=== PATIENT | female | born 1990 | race Caucasian/White ===

== ENCOUNTER 2023-07-20 21:35 | Inpatient (IN) | payer MEDICAID ==
[~2023-07-20] VITALS: Ht 160 cm; Wt 62.1 kg
[2023-07-20] VITALS (8 sets, daily range): BP systolic 132–163; BP diastolic 82–96
[~2023-07-20 21:35] MED LIST: ACHD5005 PO; CEPH500C PO; IBP600T1 PO; OMEP20CA12 PO; ONDA8TAB2 PO; PREN1TAB19 PO
--- OUTSIDE RECORDS SUMMARY | 2023-07-20 21:39 | XMS REPORT ---
Author Author Eileen Qureshi Organization [facility] C Address [address] [place] [address] Care Team Providers Care Vasc Tech Name Role Phone AdityaDEE EDENIDI Unavailable PROBLEMS Type Condition ICD9-CM Code MTB43-QL Code Onset Dates Condition Status SNOMED Code Problem Maternal drug dependence complicating , childbirth, or the puerperium, unspecified as to episode of care 648.30 Active Problem Trichomonal vulvovaginitis 131.01 Active 97582537 Problem Supervision of normal first V22.0 Active [id number] ALLERGIES No Information ENCOUNTERS Encounter Location Date Diagnosis [place] [id number] [place] [address] Jun, [place] [address] [address] May, Supervision of normal first V22.0 [place] [id number] [place] [address] May, [place] [id number] [place] [address] May, Supervision of normal first V22.0 [place] [id number] [place] [address] May, Supervision of normal first V22.0 and Uterine size date discrepancy 649.63 [place] [address] [address] May, Supervision of normal first V22.0 and Need for razeqqauxi-uecrchh-kuaxszn is (Tdap) vaccine V06.1 [place] [id number] [place] [address] Apr, Supervision of normal first V22.0 [facility] [address] [facility] [id number] [place] [address] March, Supervision of normal first V22.0 [facility] [address] [facility] [id number] [place] [address] Feb, [facility] [address] [facility] [id number] [place] [address] Feb, [facility] [address] [facility] [id number] [place] [address] Jan, [facility] [address] [facility] [id number] [place] [address] Jan, [facility] [address] [place] [address] [id number] [address] Dec, [facility] [address] [facility] [id number] [address] Dec, [facility] [address] [place] [address] [id number] [address] Dec, [facility] [address] [address] [id number] [address] Dec, [facility] [address] [address] [id number] [address] Dec, [facility] [address] [facility] [id number] [place] [address] Dec, [facility] [address] [facility] [id number] [place] [address] Nov, [facility] [address] [facility] [id number] [place] [address] Nov, [facility] [address] [facility] [id number] [place] [address] Nov, [facility] [address] [address] [id number] [address] Nov, [facility] [address] [id number] [address] Nov, [facility] [address] [id number] [address] Nov, [facility] [address] [address] [id number] [address] Nov, [facility] [address] [address] [id number] [address] Oct, [facility] [address] [address] [id number] [address] Oct, [facility] [address] [id number] [address] Oct, IMMUNIZATIONS No Known Immunizations SOCIAL HISTORY Never Assessed REASON FOR VISIT PLAN OF CARE VITAL SIGNS MEDICATIONS Unknown Medications RESULTS No Results PROCEDURES No Known procedures INSTRUCTIONS MEDICATIONS ADMINISTERED No Known Medications
--- OUTSIDE RECORDS SUMMARY | 2023-07-20 21:39 | XMS REPORT ---
Author Author Eileen GLOVER ANY Organization [facility] Address [address] [place] [address] Care Team Providers Care Sports Health Club Membership Advisors Name Role Phone BELEN OLLIE Unavailable PROBLEMS Type Condition ICD9-CM Code [id number] Code Onset Dates Condition Status SNOMED Code Problem Maternal drug dependence complicating , childbirth, or the puerperium, unspecified as to episode of care 648.30 Active Problem Trichomonal vulvovaginitis 131.01 Active 28823657 Problem Supervision of normal first V22.0 Active 832061838 ALLERGIES No Information ENCOUNTERS Encounter Location Date Diagnosis [place] [address] [address] Jun, [place] [address] [address] May, Supervision of normal first V22.0 [place] [address] [place] [address] [id number] [place] [address] May, [place] [address] [id number] [place] [address] May, Supervision of normal first V22.0 [place] [address] [address] May, Supervision of normal first V22.0 and Uterine size date discrepancy 649.63 [place] [address] [address] May, Supervision of normal first V22.0 and Need for isekeqrlfz-pymdzyb-libttfd is (Tdap) vaccine V06.1 [place] [address] [address] Apr, Supervision of normal first V22.0 [facility] [address] [facility] [id number] [address] March, Supervision of normal first V22.0 [facility] [address] [facility] [id number], [place] [address] Feb, [facility] [address] [facility] [id number], [place] [address] Feb, [facility] [address] [facility] [id number], [place] [address] Jan, [facility] [address] [facility] [id number] [place] [address] Jan, [facility] [address] [facility] [id number], [place] [address] Dec, [facility] [address] [place] [address] [id number] [address] Dec, [facility] [address] [place] [address] [id number], [place] [address] Dec, [facility] [address]00565100[place], [place] [address] Dec, [facility] [address]00565100[place], [place] [address] Dec, [facility] [address] [facility] [id number], [place] [address] Dec, [facility] [address] [facility] [id number], [place] [address] Nov, [facility] [address] [facility] [id number], [place] [address] Nov, [facility] [address] [facility] [id number], [place] [address] Nov, [facility] [address]65[address], [place] [address] Nov, [facility] [address] [place] [address] [id number] [address] Nov, [facility] [address], [place] [address] Nov, [facility] [address] [place] [address] [id number] [address] Nov, [facility] [address] [place] [address] [id number], [place] [address] Oct, [facility] [address] [id number], [place] [address] Oct, [facility] [address] [place] [address] [id number], [place] [address] Oct, IMMUNIZATIONS No Known Immunizations SOCIAL HISTORY Never Assessed REASON FOR VISIT PLAN OF CARE VITAL SIGNS MEDICATIONS Unknown Medications RESULTS No Results PROCEDURES No Known procedures INSTRUCTIONS MEDICATIONS ADMINISTERED No Known Medications
--- OUTSIDE RECORDS SUMMARY | 2023-07-20 21:39 | XMS REPORT ---
Author Author Eileen Qureshi Organization [facility] C Address [address] [place] [address] Care Team Providers Care Game Technician Name Role Phone louiselouiseGRETCHENDEE EDENIDI Unavailable PROBLEMS Type Condition ICD9-CM Code XMA15-AI Code Onset Dates Condition Status SNOMED Code Problem Maternal drug dependence complicating , childbirth, or the puerperium, unspecified as to episode of care 648.30 Active Problem Trichomonal vulvovaginitis 131.01 Active 46249444 Problem Supervision of normal first V22.0 Active 345581081 ALLERGIES No Information ENCOUNTERS Encounter Location Date Diagnosis [place] [address] [id number] [place] [address] Jun, [place] [address] [address] May, Supervision of normal first V22.0 [place] [address] [address] [id number] [place] [address] May, [place] [address] [place] [address] [id number] [place] [address] May, Supervision of normal first V22.0 [place] [address] [address] [id number] [place] [address] May, Supervision of normal first V22.0 and Uterine size date discrepancy 649.63 [place] [address] [address] May, Supervision of normal first V22.0 and Need for clvazmozpd-lzedlhh-cmluknb is (Tdap) vaccine V06.1 [place] [address] [address] [id number] [place] [address] Apr, Supervision of normal first V22.0 [facility] [address] [facility] [id number], [place] [address] March, Supervision of normal first V22.0 [facility] [address] [facility] [id number], [place] [address] Feb, [facility] [address] [facility] [id number], [place] [address] Feb, [facility] [address] [facility] [id number], [place] [address] Jan, [facility] [address] [facility] [id number], [place] [address] Jan, [facility] [address] [place] [address] [id number], [place] [address] Dec, [facility] [address] [facility] [id number], [place] [address] Dec, [facility] [address] [place] [address] [id number], [place] [address] Dec, [facility] [address] [place] [address] [id number], [place] [address] Dec, [facility] [address] [place] [address] [id number], [place] [address] Dec, [facility] [address] [facility] [id number], [place] [address] Dec, [facility] [address] [facility] [id number], [place] [address] Nov, [facility] [address] [facility] [id number], [place] [address] Nov, [facility] [address] [facility] [id number], [place] [address] Nov, [facility] [address] [place] [address] [id number], [place] [address] Nov, [facility] [address] [place] [address] [id number], [place] [address] Nov, [facility] [address] [place] [address] [id number], [place] [address] Nov, [facility] [address] [place] [address] [id number], [place] [address] Nov, [facility] [address] [place] [address] [id number], [place] [address] Oct, [facility] [address] [place] [address] [id number], [place] [address] Oct, [facility] [address] [place] [address] [id number], [place] [address] Oct, IMMUNIZATIONS No Known Immunizations SOCIAL HISTORY Never Assessed REASON FOR VISIT PLAN OF CARE VITAL SIGNS MEDICATIONS Unknown Medications RESULTS No Results PROCEDURES No Known procedures INSTRUCTIONS MEDICATIONS ADMINISTERED No Known Medications
--- OUTSIDE RECORDS SUMMARY | 2023-07-20 21:39 | XMS REPORT ---
Author Author Eileen GLOVER ANY Organization [facility] Address [address] [place] [address] Care Team Providers Care Home Visitor Name Role Phone BELEN OLLIE Unavailable PROBLEMS Type Condition ICD9-CM Code OYU36-JF Code Onset Dates Condition Status SNOMED Code Problem Maternal drug dependence complicating , childbirth, or the puerperium, unspecified as to episode of care 648.30 Active Problem Trichomonal vulvovaginitis 131.01 Active 49823487 Problem Supervision of normal first V22.0 Active 667486061 ALLERGIES No Information ENCOUNTERS Encounter Location Date Diagnosis [place] [address] [address] Jun, [place] [address] [address] May, Supervision of normal first V22.0 [place] [address] [place] [id number] [place] [address] May, [place] [address] [place] [id number] [place] [address] May, Supervision of normal first V22.0 [place] [address] [address] May, Supervision of normal first V22.0 and Uterine size date discrepancy 649.63 [place] [address] [address] May, Supervision of normal first V22.0 and Need for wcdrjmdues-ubqlskv-okjhtwl is (Tdap) vaccine V06.1 [place] [address] [address] Apr, Supervision of normal first V22.0 [facility] [address] [facility] [id number], [place] [address] March, Supervision of normal first V22.0 [facility] [address] [facility] [id number], [place] [address] Feb, [facility] [address] [facility] [id number], [place] [address] Feb, [facility] [address] [facility] [id number], [place] [address] Jan, [facility] [address] [facility] [id number] [place] [address] Jan, [facility] [address] [facility] [id number], [place] [address] Dec, [facility] [address] [place] [id number], [place] [address] Dec, [facility] [address] [id number], [place] [address] Dec, [facility] [address]00565100[place], [place] [address] Dec, [facility] [address]00565100[place], [place] [address] Dec, [facility] [address] [facility] [id number], [place] [address] Dec, [facility] [address] [facility] [id number], [place] [address] Nov, [facility] [address] [facility] [id number], [place] [address] Nov, [facility] [address] [facility] [id number], [place] [address] Nov, [facility] [address]00565100[place], [place] [address] Nov, [facility] [address] [facility] [id number], [place] [address] Nov, [facility] [place] [address] [address] [id number], [place] [address] Nov, [facility] [address] [facility] [id number], [place] [address] Nov, [facility] [place] [address] [facility] [id number], [place] [address] Oct, [facility] [place] [address] [facility] [id number], [place] [address] Oct, [facility] [place] [address] [id number], [place] [address] Oct, IMMUNIZATIONS No Known Immunizations SOCIAL HISTORY Never Assessed REASON FOR VISIT PLAN OF CARE VITAL SIGNS Height 63 in 2014-12-30 Weight 123.39 lbs 2014-12-30 Temperature 99 degrees Fahrenheit 2014-12-30 Heart Rate 80 bpm 2014-12-30 Respiratory Rate 20 2014-12-30 Blood pressure systolic 122 mmHg Blood pressure diastolic 76 mmHg 2014-12 MEDICATIONS Unknown Medications RESULTS No Results PROCEDURES Procedure Date Ordered Result Body Site OB US >/= 14 WKS, SNGL FETUS Dec 30, 2014 URINE-NO MICRO Dec 30, 2014 INSTRUCTIONS MEDICATIONS ADMINISTERED No Known Medications
--- OUTSIDE RECORDS SUMMARY | 2023-07-20 21:39 | XMS REPORT ---
Author Author Eileen GLOVER ANY Organization [facility] Address [address] [place] [address] Care Team Providers Care Suspect Artist Name Role Phone BELEN OLLIE Unavailable PROBLEMS Type Condition ICD9-CM Code UTF15-QW Code Onset Dates Condition Status SNOMED Code Problem Maternal drug dependence complicating , childbirth, or the puerperium, unspecified as to episode of care 648.30 Active Problem Trichomonal vulvovaginitis 131.01 Active 38807468 Problem Supervision of normal first V22.0 Active 066300366 ALLERGIES No Information ENCOUNTERS Encounter Location Date Diagnosis [place] [address] [address] Jun, [place] [address] [address] May, Supervision of normal first V22.0 [place] [address] [place] [address] [id number] [place] [address] May, [place] [address] [place] [id number] [place] [address] May, Supervision of normal first V22.0 [place] [address] [address] May, Supervision of normal first V22.0 and Uterine size date discrepancy 649.63 [place] [address] [address] May, Supervision of normal first V22.0 and Need for ljxprpjsdd-nzisgmi-piejbcb is (Tdap) vaccine V06.1 [place] [address] [address] Apr, Supervision of normal first V22.0 [facility] [address] [facility] [id number], [place] [address] March, Supervision of normal first V22.0 [facility] [address] [facility] [id number], [place] [address] Feb, [facility] [address] [facility] [id number], [place] [address] Feb, [facility] [address] [facility] [id number], [place] [address] Jan, [facility] [address] [facility] [id number] [place] [address] Jan, [facility] [address] [facility] [id number], [place] [address] Dec, [facility] [address] [place] [id number], [place] [address] Dec, [facility] [address] [place] [id number], [place] [address] Dec, [facility] [address]00565100[place], [place] [address] Dec, [facility] [address]00565100[place], [place] [address] Dec, [facility] [address] [facility] [id number], [place] [address] Dec, [facility] [address] [facility] [id number], [place] [address] Nov, [facility] [address] [facility] [id number], [place] [address] Nov, [facility] [address] [facility] [id number], [place] [address] Nov, [facility] [address]00565100[place], [place] [address] Nov, [facility] [place] [address] [facility] [id number], [place] [address] Nov, [facility] [place] [address] [place] [id number], [place] [address] Nov, [facility] [place] [address] [facility] [id number], [place] [address] Nov, [facility] [place] [address] [facility] [id number], [place] [address] Oct, [facility] [place] [address] [facility] [id number], [place] [address] Oct, [facility] [place] [address] [place] [address] [id number], [place] [address] Oct, IMMUNIZATIONS No Known Immunizations SOCIAL HISTORY Never Assessed REASON FOR VISIT PLAN OF CARE VITAL SIGNS Height 63 in 2015-01-27 Weight 127.79 lbs 2015-01-27 Temperature 98.7 degrees Fahrenheit Heart Rate 76 bpm 2015-01-27 Respiratory Rate 18 2015-01-27 Blood pressure systolic 108 mmHg Blood pressure diastolic 62 mmHg 2015-01 MEDICATIONS Unknown Medications RESULTS No Results PROCEDURES Procedure Date Ordered Result Body Site URINE-NO MICRO January 27, 2015 INSTRUCTIONS MEDICATIONS ADMINISTERED No Known Medications
--- OUTSIDE RECORDS SUMMARY | 2023-07-20 21:39 | XMS REPORT ---
Author Author Eileen Qureshi Organization [facility] C Address [address] [place] [address] Care Team Providers Care Customs Director Name Role Phone louiselouiseGRETCHENDEE EDENIDI Unavailable PROBLEMS Type Condition ICD9-CM Code SZS70-HV Code Onset Dates Condition Status SNOMED Code Problem Maternal drug dependence complicating , childbirth, or the puerperium, unspecified as to episode of care 648.30 Active Problem Trichomonal vulvovaginitis 131.01 Active 65883246 Problem Supervision of normal first V22.0 Active 494681747 ALLERGIES No Information ENCOUNTERS Encounter Location Date Diagnosis [place] [id number] [place] [address] Jun, [place] [address] [address] May, Supervision of normal first V22.0 [place] [id number] [place] [address] May, [place] [id number] [place] [address] May, Supervision of normal first V22.0 [place] [id number] [place] [address] May, Supervision of normal first V22.0 and Uterine size date discrepancy 649.63 [place] [address] [address] May, Supervision of normal first V22.0 and Need for ekbgielzgv-jukcwea-afzrahj is (Tdap) vaccine V06.1 [place] [id number] [place] [address] Apr, Supervision of normal first V22.0 [facility] [address] [facility] [id number], [place] [address] March, Supervision of normal first V22.0 [facility] [address] [facility] [id number], [place] [address] Feb, [facility] [address] [facility] [id number], [place] [address] Feb, [facility] [address] [facility] [id number], [place] [address] Jan, [facility] [address] [facility] [id number], [place] [address] Jan, [facility] [address] [id number], [place] [address] Dec, [facility] [address] [facility] [id number], [place] [address] Dec, [facility] [address] [id number], [place] [address] Dec, [facility] [address] [id number], [place] [address] Dec, [facility] [address] [id number], [place] [address] Dec, [facility] [address] [facility] [id number], [place] [address] Dec, [facility] [address] [facility] [id number], [place] [address] Nov, [facility] [address] [facility] [id number], [place] [address] Nov, [facility] [place] [facility] [address] [facility] [id number], [place] [address] Nov, [facility] [address] [id number], [place] [address] Nov, [facility] [address] [facility] [id number], [place] [address] Nov, [facility] [address] [facility] [id number], [place] [address] Nov, [facility] [address] [facility] [id number], [place] [address] Nov, [facility] [address] [facility] [id number], [place] [address] Oct, [facility] [address] [facility] [id number], [place] [address] Oct, [facility] [address] [facility] [id number], [place] [address] Oct, IMMUNIZATIONS No Known Immunizations SOCIAL HISTORY Never Assessed REASON FOR VISIT PLAN OF CARE VITAL SIGNS Height 63 in 2014-12-02 Weight 120.3 lbs 2014-12-02 Temperature 97.7 degrees Fahrenheit Heart Rate 70 bpm 2014-12-02 Respiratory Rate 18 2014-12-02 Blood pressure systolic 112 mmHg Blood pressure diastolic 72 mmHg 2014-11 MEDICATIONS Unknown Medications RESULTS No Results PROCEDURES Procedure Date Ordered Result Body Site TRICHOMONAS VAGIN, DIR PROBE Dec 02, 2014 SCR PAP SMER;NEW PT OBTAIN PREP&CONVY-LAB Dec 02, 2014 CYTOPATH C/V AUTO FLUID REDO Dec 02, 2014 CHYLMD TRACH, DNA, AMP PROBE Dec 02, 2014 DRUG SCREEN, QUALITATE/MULTI Dec 02, 2014 CULTURE, BACTERIA, OTHER Dec 02, 2014 URINALYSIS, AUTO, W/O SCOPE Dec 02, 2014 INSTRUCTIONS MEDICATIONS ADMINISTERED No Known Medications
--- OUTSIDE RECORDS SUMMARY | 2023-07-20 21:39 | XMS REPORT ---
Author Author Eileen Qureshi Organization [facility] C Address [address] [place] [address] Care Team Providers Care Handling Tech Name Role Phone AdityaDEE EDENIDI Unavailable PROBLEMS Type Condition ICD9-CM Code ASB02-KN Code Onset Dates Condition Status SNOMED Code Problem Maternal drug dependence complicating , childbirth, or the puerperium, unspecified as to episode of care 648.30 Active Problem Trichomonal vulvovaginitis 131.01 Active 90098263 Problem Supervision of normal first V22.0 Active 874990859 ALLERGIES No Information ENCOUNTERS Encounter Location Date Diagnosis [place] [id number] [place] [address] Jun, [place] [address] [address] May, Supervision of normal first V22.0 [place] [id number] [place] [address] May, [place] [id number] [place] [address] May, Supervision of normal first V22.0 [place] [id number] [place] [address] May, Supervision of normal first V22.0 and Uterine size date discrepancy 649.63 [place] [address] [address] May, Supervision of normal first V22.0 and Need for gvgldcvasx-yhpiulw-uehiorz is (Tdap) vaccine V06.1 [place] [id number] [place] [address] Apr, Supervision of normal first V22.0 [facility] [address] [facility] [id number] [place] [address] March, Supervision of normal first V22.0 [facility] [address] [facility] [id number] [place] [address] Feb, [facility] [address] [facility] [id number] [place] [address] Feb, [facility] [address] [facility] [id number] [place] [address] Jan, [facility] [address] [facility] [id number] [place] [address] Jan, [facility] [address] [id number] [address] Dec, [facility] [address] [facility] [id number] [place] [address] Dec, [facility] [address] [id number] [address] Dec, [facility] [address] [id number] [address] Dec, [facility] [address] [id number] [address] Dec, [facility] [address] [facility] [id number] [place] [address] Dec, [facility] [address] [facility] [id number] [place] [address] Nov, [facility] [address] [facility] [id number] [place] [address] Nov, [facility] [place] [facility] [address] [facility] [id number] [place] [address] Nov, [facility] [address] [id number] [address] Nov, [facility] [address] [facility] [id number] [place] [address] Nov, [facility] [address] [facility] [id number] [place] [address] Nov, [facility] [address] [facility] [id number] [place] [address] Nov, [facility] [address] [facility] [id number] [place] [address] Oct, [facility] [address] [facility] [id number] [place] [address] Oct, [facility] [address] [facility] [id number] [place] [address] Oct, IMMUNIZATIONS Vaccine Route Administration Date Status FLULAVAL (3 & UP) 2013 Unknown Oct 20, 2014 Admin istered SOCIAL HISTORY Never Assessed REASON FOR VISIT PLAN OF CARE VITAL SIGNS Height 63 in 2014-10-20 Weight 119.7 lbs 2014-10-20 Temperature 97.9 degrees Fahrenheit Heart Rate 74 bpm 2014-10-20 Respiratory Rate 18 2014-10-20 Blood pressure systolic 116 mmHg Blood pressure diastolic 74 mmHg 2014-10 MEDICATIONS Unknown Medications RESULTS No Results PROCEDURES Procedure Date Ordered Result Body Site HEPATITIS B SURFACE AG, EIA Oct 20, 2014 RUBELLA ANTIBODY Oct 20, 2014 URINE CULTURE/COLONY COUNT Oct 20, 2014 HIV-1 Oct 20, 2014 BLOOD SEROLOGY, QUALITATIVE Oct 20, 2014 ASSAY THYROID STIM HORMONE Oct 20, 2014 OB US < 14 WKS, SINGLE FETUS Oct 20, 2014 BLOOD TYPING, ABO Oct 20, 2014 RBC ANTIBODY SCREEN Oct 20, 2014 COMPLETE CBC W/AUTO DIFF WBC Oct 20, 2014 URINALYSIS, AUTO, W/O SCOPE Oct 20, 2014 VENIPUNCT, ROUTINE* Oct 20, 2014 INSTRUCTIONS MEDICATIONS ADMINISTERED No Known Medications
--- OUTSIDE RECORDS SUMMARY | 2023-07-20 21:39 | XMS REPORT ---
Author Author Eileen John Doctor Organization [facility] Address Unknown Phone Unavailable Care Team Providers Care Parent Educator Name Role Phone Migration, Doctor Unavailable Unavailable PROBLEMS Type Condition ICD9-CM Code [id number] Code Onset Dates Condition Status SNOMED Code Problem Maternal drug dependence complicating , childbirth, or the puerperium, unspecified as to episode of care 648.30 Active Problem Trichomonal vulvovaginitis 131.01 Active 21925376 Problem Supervision of normal first V22.0 Active 118200435 ALLERGIES No Information ENCOUNTERS Encounter Location Date Diagnosis [place] [id number] [place] [address] Jun, [place] [id number] [place] [address] May, Supervision of normal first V22.0 [place] [id number] [place] [address] May, [place] [id number] [place] [address] May, Supervision of normal first V22.0 [place] [id number] [place] [address] May, Supervision of normal first V22.0 and Uterine size date discrepancy 649.63 [place] [id number] [place] [address] May, Supervision of normal first V22.0 and Need for qsjrsxcxpc-wmspjix-ofiwtiw is (Tdap) vaccine V06.1 [place] [id number] [place] [address] Apr, Supervision of normal first V22.0 [place] [address] [id number] [place] [address] March, Supervision of normal first V22.0 [facility] [address] [id number] [place] [address] 14 Feb, 2015 [facility] [address] [facility] [id number] [place] [address] Feb, [facility] [address] [facility] [id number] [place] [address] Jan, [facility] [address] [id number] [place] [address] Jan, [facility] [address] [id number] [place] [address] Dec, [facility] [address] [facility] [id number] [place] [address] Dec, [facility] [address] [facility] [id number] [place] [address] Dec, [facility] [address] [facility] [id number] [place] [address] Dec, [facility] [address] [facility] [id number], [place] [address] Dec, [facility] [address] [facility] [id number] [place] [address] Dec, [facility] [address] [facility] [id number], [place] [address] Nov, [facility] [place] [facility] [address] [facility] [id number] [place] [address] Nov, [facility] [address] [facility] [id number] [place] [address] Nov, [facility] [place] [facility] [address] [facility] [id number] [place] [address] Nov, [facility] [place] [facility] [address] [facility] [id number], [place] [address] Nov, [facility] [address] [id number], [place] [address] Nov, [facility] [address] [id number], [place] [address] Nov, [facility] [address] [id number], [place] [address] Oct, [facility] [address] [id number], [place] [address] Oct, [facility] [address] [facility] [id number][place] [address] Oct, IMMUNIZATIONS No Known Immunizations SOCIAL HISTORY Never Assessed REASON FOR VISIT EMR-[facility] PLAN OF CARE VITAL SIGNS MEDICATIONS Medication Instructions Dosage Frequency Start Date End Date Duration Status Zofran ODT 8 mg 1 tablet by Oral route every 8 hours PRN nausea or vomiting Jan, Active DiphenhydrAMINE HCl 25 mg take 1 capsule (25 mg) by oral route 3 times per day PRN Oct, Active RESULTS No Results PROCEDURES No Known procedures INSTRUCTIONS MEDICATIONS ADMINISTERED No Known Medications
--- OUTSIDE RECORDS SUMMARY | 2023-07-20 21:39 | XMS REPORT ---
Author Author Eileen John Doctor Organization [facility] Address Unknown Phone Unavailable Care Team Providers Care Numerical Control Programmer Name Role Phone Migration, Doctor Unavailable Unavailable PROBLEMS Type Condition ICD9-CM Code XCO51-EO Code Onset Dates Condition Status SNOMED Code Problem Maternal drug dependence complicating , childbirth, or the puerperium, unspecified as to episode of care 648.30 Active Problem Trichomonal vulvovaginitis 131.01 Active 02853210 Problem Supervision of normal first V22.0 Active 934064897 ALLERGIES No Information ENCOUNTERS Encounter Location Date Diagnosis [place] [id number] [place] [address] Jun, [place] [id number] [place] [address] May, Supervision of normal first V22.0 [place] [id number] [place] [address] May, [place] [id number] [place] [address] May, Supervision of normal first V22.0 [place] [id number] [place] [address] May, Supervision of normal first V22.0 and Uterine size date discrepancy 649.63 [place] [id number] [place] [address] May, Supervision of normal first V22.0 and Need for uwwlqxjtxq-yziecwb-pggfqer is (Tdap) vaccine V06.1 [place] [address] [place] [address] Apr, Supervision of normal first V22.0 [place] [id number] [address] March, Supervision of normal first V22.0 [facility] [address] [id number] [place] [address] 14 Feb, 2015 [facility] [address] [facility] [id number] [place] [address] Feb, [facility] [address] [facility] [id number] [place] [address] Jan, [facility] [address] [id number] [place] [address] Jan, [facility] [address] [id number] [place] [address] Dec, [facility] [address] [facility] [id number] [place] [address] Dec, [facility] [address] [facility] [id number] [place] [address] Dec, [facility] [address] [facility] [id number] [place] [address] Dec, [facility] [address] [facility] [id number], [place] [address] Dec, [facility] [address] [facility] [id number] [place] [address] Dec, [facility] [address] [facility] [id number], [place] [address] Nov, [facility] [place] [facility] [address] [facility] [id number] [place] [address] Nov, [facility] [address] [facility] [id number] [place] [address] Nov, [facility] [place] [facility] [address] [facility] [id number] [place] [address] Nov, [facility] [place] [facility] [address] [id number], [place] [address] Nov, [facility] [address]65100[place], [place] [address] Nov, [facility] [address]00565100[place], [place] [address] Nov, [facility] [address] [id number], [place] [address] Oct, [facility] [address] [id number], [place] [address] Oct, [facility] [address] [id number], [place] [address] Oct, IMMUNIZATIONS No Known Immunizations SOCIAL HISTORY Never Assessed REASON FOR VISIT EMR-[facility] [place] [place] PLAN OF CARE VITAL SIGNS MEDICATIONS Unknown Medications RESULTS No Results PROCEDURES No Known procedures INSTRUCTIONS MEDICATIONS ADMINISTERED No Known Medications
[2023-07-20] MEDS ORDERED: D5 LR 1,000 ML IV SOLN 1,000 ML IV ONE (22:13)
[2023-07-20] MEDS ORDERED: AMPICILLIN 2,000 MG/14.8 ML (IV USE) ONE (22:13)
[2023-07-20] MEDS ORDERED: WATER (STERILE) FOR INJECTION 20 ML ONE (22:13)
[2023-07-20] MEDS ORDERED: NS (IVPB) 50 ML 50 ML ONE (22:16)
--- NOTE | 2023-07-20 22:23 | History & Physical-OB ---
OB - Chief Complaint & HPI Date/Time Date of Admission: Date of Admission: Jul 20, 2023 at 21:35 Date seen by a Provider: Jul 20, 2023 Time Seen by a Provider: 22:00 Chief Complaint/History OB-Reason for Admission/Chief: Obstetrical Complication Hx : 2 Hx Para: 1 Expected Date of Delivery: Aug 01, 2023 Gestational Age in Weeks: 38 Gestational Age in Days: 2 Indication for induction: medical complication Other reason for admission: at 38w2d with complicated by limited care, homelessness, depression, substance use earlier in , reported last use around March. She is currently planning to place baby for adoption and has adoptive parents with her at the hospital. TOMMY by 19 week US with unknown LMP, and first visit was at 33 weeks. On 06/15/23 US showed EFW 1995 grams, 16% measuring 32w4d. Today at her routine office visit she was noted to have low fundal height and repeat US was done after visit which showed EFW 2356 grams, measuring 34w6d, less than 2%, YENNI within normal limits. Attempted to reach patient to instruct to come to the hospital for induction, but we were unable to reach for some time, left messages for return call. Ultimately, spoke to patient 1999 and she came in for induction due to IUGR. History of Labs O negative, antibody neg, RI. HIV/HepB/HepC/RPR NR. GC/chlamydia neg. 1 hour glucola nml. GBS positive. Allergies and Home Medications Allergies Coded Allergies: No Known Drug Allergies (Unverified , 11/04/14) Patient Home Medication List Home Medication List Reviewed: Yes Escitalopram Oxalate (Escitalopram Oxalate) 10 Mg Tablet, 10 MG PO DAILY, (Reported) Entered as Reported by: OLLIE GLOVER on 07/20/232228 Last Action: Reviewed Vit/Fe Fumarate/Fa ( Vitamins Tablet) 1 Each Tablet, 1 EACH PO DAILY, (Reported) Entered as Reported by: CARLITO BOLDEN on 05/29/151956 Last Action: Reviewed Discontinued Medications Hydrocodone Bit/Acetaminophen (Lortab 5 Mg) 1 Tab Tab, 1 TAB PO Q4H PRN for PAIN Discontinued Reason: No Longer Taking Prescribed by: EVA SCHAEFER on 06/13/15 0921 Ibuprofen (Motrin Tablet) 600 Mg Tab, 600 MG PO Q6H Discontinued Reason: No Longer Taking Prescribed by: EVA SCHAEFER on 06/13/15 0921 Omeprazole (Zantac-Ppi) 20 Mg Capsule.dr, 300 MG PO BID PRN for HEARTBURN Discontinued Reason: No Longer Taking Prescribed by: VESTA CAMARENA on 06/10/15 8742 OB - History Hx of Present Care: Yes (limited) Abnormal Ultrasound Findings: 19 week US normal, 32 week US unremarkable, 38 week US with growth restriction and EFW < 2% Obstetrical Complications: Growth Restriction Medical Complications: Psychiatric Information Induced Hypertension: No Maternal Gestational Diabetes: No Hemorrhage: No Obstetrical History Hx : 3 Hx Para: 1 Hx # Term Pregnancies: 1 Hx # Pregnancies: 0 Number of Living Children: 1 Hx Total # of Abortions (Spona: 1 Hx Multiple Gestation: No Hx Ectopic : No Hx Stillbirth: No Hx Complication: Yes (IUGR current) Hx Induced Hypertens: No Hx Maternal Gestational Diabet: No Hx Hemorrhage: No Delivery History Hx Dystocia: No Hx Forceps Assisted Delivery: No Hx Vacuum Extraction Assisted: No Hx Placenta Abnormality: No Hx Distress: No Hx Large For Gestational Age I: No Hx Small for Gestational Age I: No Hx Section: No Hx Vaginal Delivery Post C-Sec: No Hx Blood Disorders: No Adverse Rxn to Tranfusion: No Risk Variables Obstetrical Risk Variables: Not POA Anemia, Not POA Asthma, Not POA Autoimmune Disease, Not POA Bariatric Surgery, Not POA Bleeding Disorder, Not POA BMI >= 40, Not POA Cardiac Disease; POA Economic Housing Instabil; Not POA Gastrointestinal Disease, Not POA Gestational Diabetes, Not POA HIV, Not POA Hypertension, Not POA Long-Term Anticoagulant U; POA Mental Health Disorder; Not POA Multiple , Not POA Neuromuscular Disease, Not POA Obstetrical VTE, Not POA Other Preeclampsia, Not POA Placenta Previa, Not POA Placental Ab ruption, Not POA Placenta Accreta Spectrum, Not POA Preexisting Diabetes, Not POA , Not POA Previous , Not POA Pulmonary Hypertension, Not POA Renal Disease, Not POA Severe Preeclampsia; POA Substance Abuse; Not POA Thyrotoxicosis Patient Past Medical History PMHx: Depression SurgHx: Tonsillectomy Left knee surgery Social History/Family History Alcohol Use: Denies Use Recreational Drug Use: Yes (history of THC and "other", last use reported March 2023) Smoking Cessation: Current every day smoker 2nd Hand Smoke Exposure: Yes Immunizations Hepatitis A: Yes Hepatitis B: Yes Tetanus Booster (TDap): Less than 5yrs (07/13/23) Rubella: immune RPR/VDRL: Negative GBS Status: Positive HBsAG: Negative OB - Admission Exam Physical Exam HEENT: NCAT Abdomen: Non tender Extremities: Normal Cervical Dilatation: 4cm Effacement: 50% Station: -1 Membranes: Ruptured (AROM at time of exam) Amniotic Fluid: Thick Meconium Heart Rate: 130's Accelerations: Accelerations Present Decelerations: No Decelerations Short Term Variability: Present Long-Term Variability: Average (6-25) Contractions on Admission: >10 Minutes Apart Gutierrez Scoring Tool (Modified) Dilation (cm): 3-4cm (2) Effacement (%): 51-79% (2) Descent/Station: -1,0 (2) Cervix Consistency: Soft (2) Cervix Position: Anterior (2) Add 1 point for: Each previous vaginal delivery (1) Gutierrez Score: 11 OB - Assessment/Plan/Diagnosis Assessment Admission Dx Term intrauterine growth restriction Group B strep positive Limited care Depression escitralopram Tobacco use Substance use in early Housing instability Admission Status: Inpatient Order (span 2 midnights) Reason for Inpatient Admission: Labor, delivery and course Plan Other Plan AROM and pitocin for induction of labor for growth restriction dietary services director consult OLLIE GLOVER MD Jul 20, 2023 22:23
[2023-07-20 22:28] LABS: BASOPHILS % (AUTO) 0 % (0-10); EOSINOPHILS # (AUTO) 0.2 10^3/uL (0.0-0.3); EOSINOPHILS % (AUTO) 1 % (0-10); HEMATOCRIT 35 % (35-52); HEMOGLOBIN 11.9 g/dL (11.5-16.0); LYMPHOCYTES # (AUTO) 2.5 10^3/uL (1.0-4.0); LYMPHOCYTES % (AUTO) 22 % (12-44); MEAN CORPUSCULAR HEMOGLOBIN 31 pg (25-34); MEAN CORPUSCULAR HGB CONC 34 g/dL (32-36); MEAN CORPUSCULAR VOLUME 89 fL (80-99); MEAN PLATELET VOLUME 10.8 fL (9.0-12.2); MONOCYTES # (AUTO) 0.9 10^3/uL (0.0-1.0); MONOCYTES % (AUTO) 8 % (0-12); NEUTROPHILS # (AUTO) 8.1 10^3/uL (1.8-7.8); NEUTROPHILS % (AUTO) 69 % (42-75); PLATELET COUNT 147 10^3/uL (130-400); WHITE BLOOD COUNT 11.8 10^3/uL (4.3-11.0)
[2023-07-20] MEDS ORDERED: ESCI-2 PO (22:29)
[2023-07-20] MEDS ORDERED: LACTATED RINGERS 1,000 ML 500 ML IV PRN (22:30)
[2023-07-20] MEDS ORDERED: MINERAL OIL 30 ML UDC TOP PRN (22:30)
[2023-07-20] MEDS ORDERED: OXYTOCIN DRIP PRE-MIX 500 ML IV SCH (22:30)
[2023-07-20] MEDS ORDERED: D5 LR 1,000 ML IV SOLN 1,000 ML IV SCH (22:30)
[2023-07-20] MEDS ORDERED: AMPICILLIN (IV) 2,000 MG in NS (IVPB) 50 ML 50 ML IV SCH (22:30)
[2023-07-20] MEDS ORDERED: fentaNYL 2 mcg/ml BUPIVA 0.125 100 ML ONE (22:33)
[2023-07-20 23:29] LABS: AMPHETAMINE SCREEN, URINE POSITIVE (NEGATIVE); CANNABINOID SCREEN, URINE POSITIVE (NEGATIVE)
[2023-07-20 23:30] LABS: BARBITURATE SCREEN URINE NEGATIVE (NEGATIVE); BENZODIAZEPINES SCREEN URINE NEGATIVE (NEGATIVE); COCAINE SCREEN URINE NEGATIVE (NEGATIVE); METHADONE STAT NEGATIVE (NEGATIVE); OPIATE SCREEN URINE NEGATIVE (NEGATIVE); OXYCODONE STAT NEGATIVE (NEGATIVE); PROPOXYPHENE STAT NEGATIVE (NEGATIVE); TRICYCLIC ANTIDEPRESSANTS SCRE NEGATIVE (NEGATIVE)
[2023-07-20] MEDS ORDERED: fentaNYL INJECTION 100 MCG/2 ML VIAL ONE (23:40)
[2023-07-20] MEDS ORDERED: BUPIVACAINE 0.25% 10 ML VIAL ONE (23:40)
[2023-07-20] MEDS ORDERED: diphenhydrAMINE INJ 50 MG/ML VIAL IV PRN (23:45)
[2023-07-20] MEDS ORDERED: LACTATED RINGERS 1,000 ML 1,000 ML IV SCH (23:45)
[2023-07-20] MEDS ORDERED: NALOXONE 0.4 MG/ML 1 ML VIAL IV PRN (23:45)
[2023-07-20] MEDS ORDERED: ONDANSETRON INJECTION 4 MG/2 ML (SDV) IV PRN (23:45)
[2023-07-20] MEDS ORDERED: fentaNYL 2 mcg/ml BUPIVA 0.125 100 ML EPI SCH (23:45)
[2023-07-21] VITALS (29 sets, daily range): BP systolic 120–154; BP diastolic 70–95
[2023-07-21] MEDS ORDERED: AMPICILLIN (IV) 1,000 MG in NS (IVPB) 50 ML 50 ML IV SCH (02:30)
[2023-07-21] MEDS ORDERED: CATHETER FLUSH 10 ML SYR IV SCH (06:00)
--- NOTE | 2023-07-21 06:16 | OB Labor & Delivery Record ---
Vag Delivery Note Vag Delivery Note Date of Delivery: 07/21/23 Preoperative Diagnosis: Eileen Méndez is a (33 /Para 3 / 1, Gestational Age (wks)38with 3 days Postoperative Diagnosis: Same Surgeon: OLLIE GLOVER Anesthesia: Epidural Delivery Type: Findings: Viable female infant, apgars 7/8, weight 5lb9 Lacerations: perineal abrasion, left periurethral laceration Intact placenta with 3 vessel cord. No nuchal cord, body cord or shoulder dystocia Estimated Blood Loss: 150 ml Complications: None Condition: Stable Description of Procedure: The patient is a 33 year old female who presented for induction due to suspected growth restriction. She was admitted and informed consent was obtained. Her labor course was unremarkable. She progressed to complete dilatation and began to push. She was then set up for delivery. The 's head was delivered atraumatically in the MACK position. The shoulders and remainder of the 's body were then delivered without difficulty. Upon delivery, the was vigorous and the mouth and nares were bulb suctioned. The cord was doubly clamped and cut and the was handed off to nursery staff. An intact placenta with 3-vessel cord delivered via Chen and there was found to be minimal bleeding.~ Vigorous fundal massage was performed and the fundus was found to be firm. IV oxytocin was given. Examination of the vagina and perineum revealed a left periurethral laceration repaired in simple running fashion with 3-0 vicryl rapide suture. Following the repair, sponge, instrument and needle counts were correct. Mom and baby were both in stable condition in the labor suite. Vitals - Labs Vital Signs - I&O Vital Signs Date Time Temp Pulse Resp B/P (MAP) Pulse Ox O2 Delivery O2 Flow Rate FiO2 07/21/23 05:04 101 16 123/82 (96) 07/21/23 04:45 100 18 121/82 (95) Room Air 07/21/23 04:30 85 18 122/78 (93) Room Air 07/21/23 04:15 87 16 131/82 (98) 07/21/23 04:02 36.7 78 16 134/81 (98) 07/21/23 03:48 78 18 134/81 (98) Room Air 07/21/23 03:19 37.4 106 18 122/85 (97) 99 Room Air 07/21/23 03:00 103 18 129/84 (99) 96 Room Air 07/21/23 02:45 95 18 134/86 (102) 97 Room Air 07/21/23 02:30 87 18 125/86 (99) 98 Room Air 07/21/23 02:15 84 18 130/88 (102) 97 Room Air 07/21/23 02:00 75 18 125/83 (97) 07/21/23 01:42 37.4 73 18 142/84 (103) 07/21/23 00:52 72 18 130/85 (100) 99 Room Air 07/21/23 00:43 71 18 136/88 (104) 100 Room Air 07/21/23 00:32 72 18 154/70 (98) 100 Room Air 07/21/23 00:23 77 18 126/77 (93) 100 Room Air 07/21/23 00:10 75 18 141/86 (104) 100 07/21/23 00:05 80 18 129/79 (96) 100 07/21/23 00:00 78 18 133/77 (95) 100 07/20/23 23:58 77 18 146/82 (103) 100 07/20/23 23:56 76 18 132/93 (106) 100 07/20/23 23:54 77 18 134/96 (109) 100 07/20/23 23:52 80 18 133/94 (107) 100 07/20/23 23:50 79 18 163/90 (114) 100 07/20/23 23:46 75 18 144/95 (111) 100 07/20/23 23:36 69 18 146/84 (104) 100 07/20/23 22:15 36.9 85 18 99 Room Air I & O 07/21/23 06:59 Intake Total 1050 ml Balance 1050 ml Labs Laboratory Tests 07/20/23 22:00: White Blood Count 11.8H, Red Blood Count 3.89, Hemoglobin 11.9, Hematocrit 35, Mean Corpuscular Volume 89, Mean Corpuscular Hemoglobin 31, Mean Corpuscular Hemoglobin Concent 34, Red Cell Distribution Width 13.2, Platelet Count 147, Mean Platelet Volume 10.8, Immature Granulocyte % (Auto) 0, Neutrophils (%) (Auto) 69, Lymphocytes (%) (Auto) 22, Monocytes (%) (Auto) 8, Eosinophils (%) (Auto) 1, Basophils (%) (Auto) 0, Neutrophils # (Auto) 8.1H, Lymphocytes # (Auto) 2.5, Monocytes # (Auto) 0.9, Eosinophils # (Auto) 0.2, Basophils # (Auto) 0.0, Immature Granulocyte # (Auto) 0.0, Syphilis Total Antibody Negative 07/20/23 23:03: Urine Opiates Screen NEGATIVE, Urine Oxycodone Screen NEGATIVE, Urine Methadone Screen NEGATIVE, Urine Propoxyphene Screen NEGATIVE, Urine Barbiturates Screen NEGATIVE, Ur Tricyclic Antidepressants Screen NEGATIVE, Urine Phencyclidine Screen NEGATIVE, Urine Amphetamines Screen POSITIVEH, Urine Methamphetamines Screen POSITIVEH, Urine Benzodiazepines Screen NEGATIVE, Urine Cocaine Screen NEGATIVE, Urine Cannabinoids Screen POSITIVEH OLLIE GLOVER MD Jul 21, 2023 06:16
[2023-07-21] MEDS ORDERED: NALOXONE 0.4 MG/ML 1 ML VIAL IV PRN (06:45)
[2023-07-21] MEDS ORDERED: BENZOCAINE/MENTHOL (DERMOPLAST) 56 ML CAN TP PRN (06:45)
[2023-07-21] MEDS ORDERED: WITCH HAZEL(TUCKS) 40 EA JAR TOP PRN (06:45)
[2023-07-21] MEDS ORDERED: DIBUCAINE 1% OINTMENT 28 GM TUBE TOP PRN (06:45)
[2023-07-21 07:51] LABS: MEAN PLATELET VOLUME 10.6 fL (9.0-12.2)
[2023-07-21 07:53] LABS: HEMOGLOBIN 12.3 g/dL (11.5-16.0); WHITE BLOOD COUNT 16.7 10^3/uL (4.3-11.0)
[2023-07-21 08:14] LABS: ALBUMIN 2.9 GM/DL (3.2-4.5); BILIRUBIN,TOTAL 0.4 MG/DL (0.1-1.0); CALCIUM 8.1 MG/DL (8.5-10.1); CREATININE SERUM 0.66 MG/DL (0.60-1.30); POTASSIUM 3.9 MMOL/L (3.6-5.0); TOTAL PROTEIN 5.7 GM/DL (6.4-8.2); URIC ACID 4.5 MG/DL (2.6-7.2)
[2023-07-21] MEDS: IBUPROFEN 800 MG TABLET PO SCH ×2 (09:02→17:05)
[2023-07-21] MEDS: ACETAMINOPHEN 500 MG TABLET PO SCH ×2 (09:02→20:57)
[2023-07-21] MEDS: PRENATAL VITAMIN TABLET PO SCH (10:14)
[2023-07-21] MEDS: DOCUSATE SODIUM 100 MG CAPSULE PO SCH ×2 (10:14→20:09)
[2023-07-21] MEDS: HYDROcodone/ACETAMINOPHEN 5 MG/325 MG TABLET PO PRN ×3 (13:30→22:15)
--- NOTE | 2023-07-21 13:40 | Anesthesia-Regional Post-Op ---
Regional Patient Condition Mental Status: Alert, Oriented x3 Circulation: Same as Pre-Op Headache: Absent Sensation: Full Recovery Motor Block: Absent Post Op Complications Complications None Follow Up Care/Instructions Patient Instructions None needed. Anesthesia/Patient Condition Patient is doing well, no complaints, stable vital signs, no apparent adverse anesthesia problems. No complications reported per nursing. KATIE GIORDANO CRNA Jul 21, 2023 13:40
[2023-07-22] MEDS: IBUPROFEN 800 MG TABLET PO SCH ×2 (01:29→10:25)
[2023-07-22 01:35] VITALS: BP 135/81
[2023-07-22] MEDS: ACETAMINOPHEN 500 MG TABLET PO SCH ×2 (02:15→07:43)
[2023-07-22] MEDS ORDERED: IBUP-1780 PO (06:27)
--- NOTE | 2023-07-22 06:28 | Discharge Summary ---
Discharge Summary Hospital Course Hospital Course Date of Admission: Jul 20, 2023 at 21:35 Admission Diagnosis : 38 weeks gestation Suspected growth restriction Limited care History of substance use Depression Family Physician/Provider: Ollie Zelaya MD Date of Discharge: 07/22/23 Discharge Diagnosis: s/p spontaneous vaginal delivery depression Hospital Course: 33 yo G3 now P2 admitted for induction of labor due to suspected growth restriction diagnosed at 38 weeks. She was noted to have some elevated BP measurements during labor, below severe range. Preeclampsia labs were negative. She had uncomplicated vaginal delivery and course. Labs and Pending Lab Test: Laboratory Tests 07/21/23 07:43: White Blood Count 16.7H, Red Blood Count 4.04, Hemoglobin 12.3, Hematocrit 36, Mean Corpuscular Volume 89, Mean Corpuscular Hemoglobin 30, Mean Corpuscular Hemoglobin Concent 34, Red Cell Distribution Width 13.0, Platelet Count 137, Mean Platelet Volume 10.6, Percent Immature Platelet Fraction 5.8, Sodium Level 135, Potassium Level 3.9, Chloride Level 104, Carbon Dioxide Level 23, Anion Gap 8, Blood Urea Nitrogen 6L, Creatinine 0.66, Estimat Glomerular Filtration Rate 119, BUN/Creatinine Ratio 9, Glucose Level 126H, Uric Acid 4.5, Calcium Level 8.1L, Corrected Calcium 9.0, Total Bilirubin 0.4, Aspartate Amino Transf (AST/SGOT) 17, Alanine Aminotransferase (ALT/SGPT) 8, Alkaline Phosphatase 144H, Lactate Dehydrogenase 173, Total Protein 5.7L, Albumin 2.9L Home Meds Active Ibuprofen 800 Mg Tablet 800 Mg PO Q8H PRN Reported Escitalopram Oxalate 10 Mg Tablet 10 Mg PO DAILY Vitamins Tablet ( Vit/Fe Fumarate/Fa) 1 Each Tablet 1 Each PO DAILY Assessment/Pt DC Instructions Follow up with Dr. Zelaya in 6 weeks for visit. Discharge Diet: Regular Diet Activity as Tolerated: Yes (avoid strenuous activity x 6 weeks) Discharge Physical Examination Allergies: Coded Allergies: No Known Drug Allergies (Unverified , 11/04/14) General Appearance: No Apparent Distress Respiratory: Normal Breath Sounds Cardiovascular: Regular Rate, Rhythm, No Murmur Gastrointestinal: Other (fundus firm, nontender, below umbilicus) Extremity: No Pedal Edema Skin: Normal Color, Warm/Dry Neurologic/Psychiatric: Alert, Normal Mood/Affect OLLIE ZELAYA MD Jul 22, 2023 06:28
[2023-07-22] MEDS: PRENATAL VITAMIN TABLET PO SCH (07:42)
[2023-07-22 07:43] VITALS: BP 142/85
[2023-07-22] MEDS: DOCUSATE SODIUM 100 MG CAPSULE PO SCH (07:43)
== END 2023-07-22 11:50 | disposition home or self-care (01) | DRG 806 ==
LOC: LDRP 21:35
PROVIDERS: ADMIT Family Medicine; ATTEND Family Medicine
PROC: 10E0XZZ Delivery of Products of Conception, External Approach (ICD-10-PCS; principal; 2023-07-20)
PROC: 10907ZC Drainage of Amniotic Fluid, Therapeutic from Products of Conception, Via Natural or Artificial Opening (ICD-10-PCS; 2023-07-20)
PROC: 3E033VJ Introduction of Other Hormone into Peripheral Vein, Percutaneous Approach (ICD-10-PCS; 2023-07-20)
PROC: 0UQMXZZ Repair Vulva, External Approach (ICD-10-PCS; 2023-07-20)
DX: O36.5930 Maternal care for other known or suspected poor fetal growth, third trimester, not applicable or unspecified (principal); O99.324 Drug use complicating childbirth; Z37.0 Single live birth; Z3A.38 38 weeks gestation of pregnancy; O99.824 Streptococcus B carrier state complicating childbirth; O99.344 Other mental disorders complicating childbirth; O99.334 Smoking (tobacco) complicating childbirth; F17.210 Nicotine dependence, cigarettes, uncomplicated; Z59.819 Housing instability, housed unspecified; O71.82 Other specified trauma to perineum and vulva; Z59.00 Homelessness unspecified; O77.0 Labor and delivery complicated by meconium in amniotic fluid; F32.A Depression, unspecified
CPT/HCPCS: 36415; 80053; 80306; 82570; 83615; 84156; 84550; 85025; 85027; 86780; 86850; 86870; 86900; 86901